=== PATIENT | female | born 1995 | race Caucasian/White ===

== ENCOUNTER 2023-10-09 01:05 | Inpatient (IN) | payer MEDICAID, SELFPAY ==
[2023-10-09] VITALS (17 sets, daily range): BP systolic 102–133; BP diastolic 59–80; PULSE 62–91; RESP 14–22; TEMP 36.8–37.3; O2SAT 96–97
[2023-10-09] MEDS: Oxytocin 10 UNITS/ML Vial IM (01:20)
[2023-10-09] MEDS: Oxytocin 15 Units/NS 250ml 15 UNITS/250 ML IV.SOLN 83 UNITS IV (01:21)
[2023-10-09 01:36] LABS: Absolute Lymphocyte Count 1.98 X10^3/uL (0.83-4.51); Absolute Neutrophil Count 22.7 X10^3/uL (2.0-7.7); Basophil# 0.08 X10^3/uL; Basophil% 0.3 % (0-1); Eosinophil# 0.12 X10^3/uL; Eosinophils% 0.4 % (0-5); Hematocrit 37.1 % (37-47); Hemoglobin 12.4 g/dL (12.0-15.0); Lymphocyte # 1.98 X10^3/ul (0.83-4.51); Lymphocyte % 7.3 % (19-41); Mean Corp Hgb Conc 33.4 g/dL (32-36); Mean Corpuscular Hgb 30.4 pg (27.0-32.0); Mean Corpuscular Volume 90.9 fL (81-99); Mean Platelet Vol. 10.3 fl (6.2-12.0); Monocyte% 5.9 % (0-10); NRBC Flagged by Analyzer 0 % (0-5); Neutrophil # 22.72 X10^3/uL (2.7-7.7); Neutrophil % 84.4 % (47-70); POSITIVE DIFFERENTIAL YES; Platelet Count 288 K/mm3 (150-450); RBC Distribution Width CV 13.2 % (11.6-14.6); RBC Distribution Width SD 43.8 fl (35.1-43.9); Red Blood Count 4.08 M/mm3 (4.2-5.4)
--- NOTE | 2023-10-09 01:36 | PCM.HP.OB ---
HPI - General General Date of Admission: 10/09/23 HPI Narrative EDIS MCGRATH, is a 28 F at 38.6 weeks who presents in active, spontaneous labor. PFSH PFSH Home Medications biotin 1 mg capsule 1 mg PO DAILY discuss with pt 10/09/23 [History Last Taken 10/08/23 16:00] csyhfalh-[id number]-[id number] 1 mg tablet 1 tab PO DAILY 10/09/23 [History Last Taken 10/08/23 16:00] Allergy/AdvReac Type Severity Reaction Status Date / Time bee pollen Allergy Severe Other Verified 10/09/23 01:35 Food Allergies: Uncoded Allergy Severe Other Verified 10/09/23 01:35 ROS Eyes Eyes: Denies blurry vision, change in vision or spots in vision ENT HEENT: Denies dizziness or headache(s) Cardiovascular Cardiovascular: Denies abdominal pain, chest pain or dyspnea Respiratory/Chest Respiratory/Chest: Denies cough, dyspnea, shortness of breath at rest or shortness of breath with exertion Gastrointestinal Gastrointestinal: Denies abdominal pain, diarrhea or vomiting Genitourinary Genitourinary: Denies change in urinary stream, difficulty urinating or dysuria Musculoskeletal Musculoskeletal: Reports none Integumentary Integumentary: Denies rash Neurologic Neurologic: Denies dizziness, headache(s), memory loss or weakness Psychiatric Psychiatric: Reports none Vital Signs Vital Signs Vital Signs: 10/09/23 01:30 10/09/23 01:30 Pulse Rate 91 Blood Pressure 133/74 H BP Systolic 133 BP Diastolic 74 Physical Exam Const alert, oriented x3 and no apparent distress General Appearance: cooperative Orientation / Consciousness: awake Exam Limitations: no limitations HEENT normocephalic Head and Scalp: normal to inspection Eyes General Eye: normal appearance of both eyes Neck full ROM and no lymphadenopathy Lymph Lymphatic: no lymphadenopathy noted Chest inspection of chest normal Resp normal respiratory effort, normal air movement and clear to auscultation bilaterally Effort and Inspection: able to speak in complete sentences and symmetric chest movement Cardio regular rate and regular rhythm GI normal to inspection, nondistended, normoactive bowel sounds Manual OB Exam: presentation cephalic, dilated 4, effaced 80 and station 0 Amniotic Fluid: clear amniotic fluid Back/Spine normal ROM Extremity full ROM and no calf tenderness Skin no rashes or lesions noted General Skin Exam: no breakdown Neuro oriented x3 and CN's II-XII intact bilaterally Psych mental status grossly normal and thought process normal Labs Labs Labs: Blood Type Pending Antibody Screen Pending Hct Pending Hgb Pending Syphilis Total Ab Pending GBS negative Assessment & Plan (1) 38 weeks gestation of : (2) Delayed delivery after SROM (spontaneous rupture of membranes): (3) Spontaneous onset of labor: (4) Late care affecting : (5) Marijuana use: (6) History of seizures: (7) Asthma: (8) Anxiety: PLAN: Plan Admit to L&D GBS negative Reports had seizure after previous 8 years ago- BP related? Stated thinks her water broke over 24 hour ago
--- NOTE | 2023-10-09 01:40 | EX.PCM.OBRPT ---
Assessment & Plan (1) Precipitous delivery: (2) Meconium in amniotic fluid: (3) Anxiety: (4) Asthma: (5) History of seizures: (6) Marijuana use: (7) Late care affecting : (8) Spontaneous onset of labor: (9) 38 weeks gestation of : (10) Spontaneous rupture of amniotic membranes: Maternal Data Information BECKY Calculator Estimated Delivery Date Method Current WG Current Estimate 10/17/23 Manual 38w 6d Vaginal Delivery Maternal Presentation Maternal Presentation: Active Labor and Spontaneous Rupture of Membranes Maternal Presentation: at 38.6 weeks gestation that arrived to unit with spontaneous rupture of membranes and onset of labor. Operative Information Date of Procedure: 10/09/23 Pre-Operative Diagnosis: Term gestation, Spontaneous onset of active labor, spontaneous rupture of membranes Post-Operative Diagnosis: Precipitous delivery, , Live female infant Surgery / Procedure Performed: Spontaneous Vaginal Delivery Type of Anesthesia: None Estimated Blood Loss: 200 Time of Delivery: 01:17 Findings Description of Procedure: Called to patient's room upon arrival to unit. Patient is complete dilation with forebag present. AROM forebag for meconium fluid. With one push, head delivered over intact perineum followed immediately by remainder of infant body without traction. Vigorous female dried off and placed on maternal abdomen. Pitocin IM and IV started for active management of the third stage of labor. 3 vessel cord clamped and cut by FOB after delay. placed immediately skin to skin with patient. Placenta delivered spontaneously and intact. Vagina and perineum intact. Vaginal sweep completed by me. Fundus is firm 2 below U. EBL [address] APGARS 9/9. Dr. Case notified of delivery. Presentation: Vertex Amniotic Membrane Rupture Type: Spontaneous Time of Membrane Rupture: 2200 on 10/07/23 Amniotic Fluid Description: Lightly stained meconium Placental Delivery Description: Spontaneous Placenta Disposition: [facility] Cord Vessel Description: 3 Vessels Cord Entanglement: None Nuchal Cord Compression: Without compression Infant A Gender: Female (1 minute): 9 (5 minute): 9 Delayed Cord Clamping: Yes Post Vaginal Delivery Medications Given After Delivery: IV Pitocin and IM Pitocin Episiotomy Description: None Laceration: None Complication Complications: None
[2023-10-09 01:52] LABS: Differential Indicated SCAN CRITERIA MET
[2023-10-09 02:15] LABS: Syphilis Antibodies Non-reactive
[2023-10-09] MEDS: Naproxen 500 MG Tablet PO ×3 (02:33→17:49)
[2023-10-09] MEDS: Acetaminophen 500 MG Tablet 1000 MG PO ×2 (02:34→14:57)
[2023-10-09] MEDS: Methylergonovine 0.2 MG/ML Ampul IM (02:47)
[2023-10-09 04:12] LABS: Amphetamine Urine NEGATIVE (<1000 ng/mL); Barbiturate Urine NEGATIVE (< 200 ng/mL); Benzodiazepine Urine NEGATIVE (< 200 ng/mL); Cocaine Urine NEGATIVE (< 300 ng/mL); Ecstacy Urine NEGATIVE (< 500 ng/mL); Methadone Urine NEGATIVE (< 300 ng/mL); Opiates Urine NEGATIVE (< 300 ng/mL); PCP Urine NEGATIVE (< 25 ng/mL); THC Urine POSITIVE (< 50 ng/mL); Vista UDS pH Range 6
[2023-10-09] MEDS: 0.9% Saline Lock 10 ML Syringe IV (04:30)
[2023-10-09 15:31] LABS: Pathologist Review Reviewed
[2023-10-10] MEDS: Acetaminophen 500 MG Tablet 1000 MG PO (00:08)
[2023-10-10 02:10] VITALS: BP 120/69; PULSE 61; RESP 16
[2023-10-10] MEDS: Naproxen 500 MG Tablet PO (08:03)
[2023-10-10 08:06] VITALS: BP 117/64; PULSE 60; RESP 16
--- NOTE | 2023-10-10 08:40 | PCM.PN.OB ---
Subjective Subjective Pt doing well. Having some cramping but pain is controlled. She is ambulating and voiding without difficulty. She denies chest pain, shortness of breath, lightheadedness, dizziness. She is eating without nausea or vomiting. Lochia is normal. She desires to go home today. Objective Data Objective Data Vital Signs: Vital Signs Temp Pulse Resp BP Pulse Ox O2 Del Method 98.2 F 60 16 117/64 97 Room Air 10/09/23 19:38 10/10/23 08:06 10/10/23 08:06 10/10/23 08:06 10/09/23 03:31 10/10/23 08:06 Oxygen Delivery Method Room Air Intake & Output: Intake and Output for Last 24 Hours 10/08/23 10/09/23 10/10/23 23:59 23:59 23:59 Intake Total 250 / 250 Output Total 700 / 700 Balance -450 / -450 Lab / Micro Data 10/09/23 01:15 Labs: Laboratory Results - last 24 hr 10/09/23 01:15: Diff Path Review Reviewed Physical Exam Const alert and no apparent distress General Appearance: comfortable HEENT normocephalic Resp normal respiratory effort GI soft to palpation, non-tender and non-distended GI Narrative: FF@U-2 Assessment & Plan (1) Precipitous delivery: PLAN: PPD#1 s/p . Pt doing well and desires discharge. Discharge instructions reviewed and patient to follow up in the office. (2) Vaginal delivery:
--- NOTE | 2023-10-10 08:46 | DCINST_ITS ---
Discharge Instructions Diet Discharge Diet: No restrictions Activity Discharge Activity: May Drive and May Shower May resume sexual activity in: 6 weeks Weight Bearing Status: Weight bearing as tolerated Lifting Restrictions: nothing heavier than baby Dressing / Incision Call your doctor if you observe: Fever of 101 or Higher, Coldness, Increased Pain, Numbness or Tingling, Change in Color, Inability to urinate, Inability to have a bowel movement, Using more than 1 pad per hour, Shortness of breath, Dizziness, Fainting spells, Swelling in the ankles, Chest pain, Prolonged hiccupping, Increased palpitations (irregular heartbeat), Calf discomfort and Uncontrolled pain Cleanse incision/area with: Soap & Water Follow Up Care When: 1-2 weeks for early visit 6 weeks for exam Test Results: Test results from this visit will be discussed in further detail at your follow- up appointment, if applicable. Discharge Plan Admission Admit Date/Time: 10/09/23 01:05 Primary Reason for Your Visit: delivery Attending Provider: Anu Finn Primary Care Provider: Care Physician,Zhane Primary Instructions Patient Instructions: After a Vaginal Discharge Orders/Prescriptions Prescriptions: Continued biotin 1 mg capsule 1 mg PO DAILY [id number]-[id number]-[id number]-FA 1 mg tablet 1 tab PO DAILY Referrals / Follow Up: Care Physician,No Primary [Primary Care Provider] - Disposition Disposition (needs filled in before D/C Order can be placed): Home, Self Care
[2023-10-10] MEDS: Senna/Docusate Sodium 1 Tablet PO (10:54)
--- NOTE | 2023-10-10 14:04 | CASEMGMT ---
Social Work Assessment Labor and Delivery Unit Patient Address:[address] [place] [address]. [place] [address] Phone number: [phone] Date of Referral: 10/09/23 Time of Referral:? 216 Referred By: Anu Finn Date of Intervention: 10/10/23?? Time of Intervention:? 904 Reason for Referral:? hx of anxiety, marijuana use Sw completed chart review and acknowledges social work consult due to maternal mental health history and THC use. Sw presented to bedside and introduced self to mother of baby (MOB- Shahana) and father of baby (FOB- Rduy). Sw explained sw role during hospitalization and completed psychosocial assessment. History obtained from: medical records, MOB and FOB Household composition: Currently residing in the family home is MICHAEL PARHAM, PRASAD's older son- Tari, who is there a portion of the time, and now baby when ready for discharge. Patient's parent/guardian status:? ?Parents state that they have known each other for a while, but are now and have been together for 4 years. No reports of domestic violence or intimate partner violence at this time. Medical History: ?PRASAD si 28 year old female who is 2, para 1- now 2 following labor and delivery of . PRASAD received routine care during with [facility]. PRASAD presented to hospital for delivery and delivered baby on 10/09/23. Baby girl, named April Allen, was born weighing 7lb 12oz and her apgars were 9 and 9 at one and five minutes of life respectfully. Baby will be followed by Dr. Hernandez for pediatrics. PRASAD states that she is bottle feeding and has all the necessary baby supplies. Educational Status:? Both parents completed high school. Financial Status: FOZoya is employed outside of the home at [employer]. 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 Both parents are able to take some time off of work now that baby has been born. Infant Supplies:??PRASAD states that she has obtained all necessary baby supplies, including: car seat, safe sleep space, clothes, diapers and wipes. Childcare/Caregiver(s):? MOB will be the primary caregiver to baby along with FOB when he is not at work. When both parents are working maternal grandma will be able to provide childcare. Transportation:??No transportation barriers at this time, both parents have reliable means of transportation. Programs/Agencies Involved: PRASAD is connected to insurance through [employer] ([facility] and was educated that she will be eligible for [facility] since being on Medicaid insurance. ??? Children Services/Legal Issues: No history of children services involvement. Reema informed parents that reema is mandated to make a referral to [facility] due to maternal use of THC during . Parents express understanding. - Reema called [facility] and spoke to hotline worker: Orin. Behavioral Health Issues: ??Mental Health History: FOB states that he does not have any mental health diagnoses. MOB reports that she has been diagnosed with anxiety. MOB states that she did not experience any baby blues or when she had her first baby. ??? Substance Use History:??MOB states that she did use marijuana throughout her to help soothe herself. MOB reports that she would smoke 2-3 times a month. FOB reports that he also smokes marijuana. Family History: No family history of addiction or substance use reported. Parents deny significant mental health diagnoses. ? Drug Screens: ?MOB and baby urine screen was positive for THC at time of admission/ delivery. ? Family/Social Stressors:? Parents deny any issues, concerns or stressors at this time. Parents understanding that reema is mandated to make referral to Children Services due to maternal substance use during . Support Systems: MOB states that both grandmas are supportive and her friend. Depression/Shaken Baby/Safe Sleeping:? Sw educated parents at length regarding signs and symptoms of baby blues and depression and anxiety. FOB stated that he believes he would be able to recognize if MOB were struggling and would know how to help her. Sw educated parents on shaken baby prevention and ABCs of safe sleep. Parents express understanding. ASSESSMENT:? MOB and baby admitted following labor and delivery of . MOB informed parents that they both would benefit from getting connected to some mental health services and supports due to them both using marijuana. Parents were engaged in conversation during completion of psychosocial assessment. MOB with mental health history of anxiety, she reports to self medicate with THC. Referral made to Children Services. Parents have obtained everything they need for baby, and have natural supports in place. Safe Plan of Care for infant related to substance use:? Parents educated on safety of not smoking marijuana and told parents that if they do continue to smoke- which was discouraged- they need to do it outside of the home and change clothes/ wash hands prior to holding and caring for baby. PLAN:? Children Services to review referral, if they get involved they will follow up with family at home. Baby to be discharged when MOB when medically ready. ?No other services requested or indicated. Rabia Schuster, CAR SALESPERSON, CATERING OPERATIONS MANAGER
== END 2023-10-10 11:20 | disposition home or self-care (01) | DRG 560 ==
PROVIDERS: Admitting Provider Advanced Practice Midwife; Referring Provider Advanced Practice Midwife; Visit Provider Advanced Practice Midwife
DX: O62.3 Precipitate labor (principal); Z37.0 Single live birth; O99.324 Drug use complicating childbirth; F12.90 Cannabis use, unspecified, uncomplicated; O42.12 Full-term premature rupture of membranes, onset of labor more than 24 hours following rupture; O77.0 Labor and delivery complicated by meconium in amniotic fluid; Z3A.38 38 weeks gestation of pregnancy
CPT/HCPCS: 59025; 59050; 80307; 85025; 86780; 86850; 86900; 86901; 99221; A4216; G0378